=== PATIENT | male | born 1955 | race Caucasian/White ===

== ENCOUNTER 2019-10-22 23:50 | Inpatient (IN) ==
[2019-10-23] MEDS ORDERED: NS 1,000 ML IV ONE ×3 (00:46→07:00)
[2019-10-23 01:53] LABS: URINE SOURCE CLEAN CATCH
[2019-10-23 01:58] LABS: ALBUMIN 4.4 g/dL (3.5-5.0); ALKALINE PHOSPHATASE 107 U/L (32-122); BUN 18 mg/dL (8-22); CALCIUM 10.3 mg/dL (8.8-10.2); CREATININE 0.9 mg/dL (0.7-1.2); ESTIMATED GFR > 60; GLUCOSE 278 mg/dL (70-104); GOT 17 U/L (10-34); GPT 32 U/L (10-44); TCO2 21 mmol/L (25-35); TOTAL PROTEIN 6.7 g/dL (6.3-8.3)
[2019-10-23 02:02] LABS: LIPASE 57 U/L (13-60)
[2019-10-23 02:11] LABS: BILIRUBIN URINE NEGATIVE (NEGATIVE); BLOOD URINE NEGATIVE (NEGATIVE); COLOR YELLOW; GLUCOSE URINE NEGATIVE (NEGATIVE); KETONE URINE 40 mg/dL (NEGATIVE); LEUKOCYTES URINE NEGATIVE (NEGATIVE); NITRITE URINE NEGATIVE (NEGATIVE); PROTEIN URINE 50 mg/dL (NEGATIVE); TURBIDITY URINE CLEAR (CLEAR); UROBILINOGEN URINE 2 mg/dL (NORMAL)
[2019-10-23 02:13] LABS: UR EPITHELIAL CELLS <10 /HPF (<10); URINE BACTERIA NEGATIVE /HPF; URINE RBC <10 /HPF (<10); URINE WBC <10 /HPF (<10)
[2019-10-23 02:16] LABS: BASO# 0.04 X1000 (0.0-0.2); BASO% 0.3 % (0.0-0.8); EOS# 0.21 X1000 (0.0-0.7); EOS% 1.3 % (0.0-10.0); HEMATOCRIT 49.3 % (42.0-52.0); HEMOGLOBIN 17.7 g/dL (14.0-18.0); IMM GRAN# 0.09 X1000 (0.0-0.04); IMM GRAN% 0.6 % (0.0-0.5); LYMPH# 1.56 X1000 (1.2-3.4); LYMPH% 9.9 % (20.5-51.1); MCH 29.2 PG (27-31); MCHC 35.9 g/dL (33-37); MCV 81.4 FL (81-99); MONO# 1.02 X1000 (0.11-0.59); MONO% 6.5 % (1.7-9.3); MPV 11.8 FL (7.4-10.4); NEUT# 12.81 X1000 (1.4-6.5); NEUT% 81.4 % (42.2-75.2); PLT 215 X1000 (130-400); RBC 6.06 XMIL (4.7-6.1); RDW 13.1 % (11.5-14.5); WBC 15.73 X1000 (4.8-10.8)
[2019-10-23 02:49] LABS: UR AMPHETAMINES QUAL NONE DETECTED (NONE DETECT); UR BARBITUATES QUAL NONE DETECTED (NONE DETECT); UR BENZODIAZEPIN QUAL NONE DETECTED (NONE DETECT); UR COCAINE QUAL NONE DETECTED (NONE DETECT); UR METHADONE QUAL NONE DETECTED (NONE DETECT); UR METHAMPHETAMINE QUAL NONE DETECTED (NONE DETECT); UR OPIATES QUAL NONE DETECTED (NONE DETECT); UR OXYCODONE QUAL NONE DETECTED (NONE DETECT); UR PCP QUAL NONE DETECTED (NONE DETECT); UR PROPOXYPHENE QUAL NONE DETECTED (NONE DETECT)
[2019-10-23 02:50] LABS: UR CANNABINOIDS QUAL NONE DETECTED (NONE DETECT); UR TCA QUAL NONE DETECTED (NONE DETECT)
[2019-10-23 02:51] LABS: CHLORIDE 102 mmol/L (98-107); POTASSIUM 3.2 mmol/L (3.5-5.1); SODIUM 140 mmol/L (136-145)
[2019-10-23] MEDS ORDERED: MORPHINE IV ONE (05:03)
[2019-10-23] MEDS ORDERED: ZOFRAN IV ONE (05:03)
[2019-10-23] MEDS ORDERED: HALDOL IM ONE (05:45)
--- NOTE | 2019-10-23 06:01 | EKG Report ---
Test Performed on : 10/23/2019 05:49:01 AM Test Reason : behavioral change, psych screening. Blood Pressure : / mmHG Vent. Rate : 062 BPM Atrial Rate : 062 BPM P-R Int : 152 ms QRS Dur : 100 ms QT Int : 436 ms P-R-T Axes : 052 054 060 degrees QTc Int : 442 ms Normal sinus rhythm. with sinus arrhythmia. Normal ECG When compared with ECG of 24-APR-2011 20:40, T wave inversion less evident in Anterolateral leads QT has lengthened Unconfirmed Result
--- NOTE | 2019-10-23 06:53 | Diag Imaging Result Doc PS360 ---
EXAM: CT HEAD W/O CONTRAST - 10/23/2019 HISTORY: acute behavioral change TECHNIQUE: CT head without contrast COMPARISON: 04/24/2011 FINDINGS: There is no evidence of intracranial hemorrhage, mass effect, midline shift, or hydrocephalus. There is no evidence of infarct, although acute infarcts may not be immediately visible. There is no evidence of skull fracture. Visualized portions of paranasal sinuses and mastoid air cells appear clear. IMPRESSION: No visible acute intracranial abnormality. The on-call radiologist provided preliminary results at 3:33 AM on 10/23/2019. This exam was performed using automated exposure control, adjustment of mA or kV according to patient size, and/or use of iterative reconstruction technique. Electronically signed by Kishore Ann 10/23/2019 6:51 AM
--- NOTE | 2019-10-23 06:57 | PROVIDER DOCUMENTATION ---
HPI-General Adult - General Chief Complaint: Psych-Low Risk Stated Complaint: PSYCH EVAL Time Seen by Provider: 10/23/19 00:17 Allergies/Adverse Reactions: Patient Allergies Allergy/AdvReac Type Severity Reaction Status Date / Time coconut oil Allergy RASH Verified 03/27/15 10:14 Penicillins Allergy RASH Verified 03/27/15 10:14 Home Medications: Home Medication List Medication Instructions Recorded Confirmed Last Taken Type Amlodipine Besylate [Norvasc] 5 mg PO DAILY 07/13/14 03/27/15 03/27/15 07:00 History Aspirin [Aspirin EC] 81 mg PO DAILY 07/13/14 03/27/15 03/27/15 07:00 History Atorvastatin Calcium [Lipitor] 20 mg PO HS 07/13/14 03/27/15 03/27/15 07:00 History Isosorbide Mononitrate E.r. [Imdur] 30 mg PO HS 07/13/14 03/27/15 03/27/15 07:00 History Clonidine [Catapres] 0.1 mg PO DAILY 03/27/15 03/27/15 03/27/15 07:00 History - History of Present Illness -Gen Adult Nature of Presenting Problems: Pt presents for med clearance for psychiatry due to feeling paranoid that people are entering his home and watching him through his TV. His daughter states this has been worsening over several weeks and is now severe. He has been vomiting the past 2 days after eating and having severe bouts of lower abdominal pain. No previous episodes of such. Past History - Adult - PAST MEDICAL HISTORY-ADULT Major Childhood Illnesses: reports: denies history Cardiovascular: reports: HTN, hyperlipidemia, [place] Respiratory: reports: denies history Gastrointestinal: reports: denies history Obstetrical/Gynecological: reports: denies history Genitourinary: reports: denies history Musculoskeletal: reports: denies history Neurological: reports: denies history Endocrine/Immune: reports: denies history Other Conditions: reports: denies history - PRIOR SURGERIES/PROCEDURES Surgical/Procedure History: reports: CABG - PRIOR HOSPITALIZATIONS Prior Hospitalizations: reports: none - IMMUNIZATION STATUS Childhood Immunizations: UTD - FAMILY HISTORY Family History: reviewed, not pertinent Progress - PLAN OF CARE/RESULTS Progress/Plan/Lab Results: Vital Signs - 8 hr 10/22/19 23:52 10/23/19 01:45 10/23/19 03:43 Temperature 97.3 F L 97.8 F Pulse Rate 100 H 109 H 77 Respiratory Rate 18 28 H 18 Blood Pressure 171/108 142/96 115/78 O2 Sat by Pulse Oximetry 95 98 98 10/23/19 05:15 10/23/19 06:00 Temperature Pulse Rate 86 70 Respiratory Rate 18 20 Blood Pressure 118/78 126/69 O2 Sat by Pulse Oximetry 95 92 L Laboratory Results - last 24 hr 10/23/19 10/23/19 10/23/19 00:18 00:18 00:18 WBC 15.73 H RBC 6.06 Hgb 17.7 Hct 49.3 MCV 81.4 MCH 29.2 MCHC 35.9 RDW Std Deviation 13.1 Plt Count 215 MPV 11.8 H Immature Gran % (Auto) 0.6 H Neut % (Auto) 81.4 H Lymph % (Auto) 9.9 L Burnett % (Auto) 6.5 Eos % (Auto) 1.3 Baso % (Auto) 0.3 Immature Gran # (Auto) 0.09 H Neut # (Auto) 12.81 H Lymph # (Auto) 1.56 Burnett # (Auto) 1.02 H Eos # (Auto) 0.21 Baso # (Auto) 0.04 Sodium 140 Potassium 3.2 L Chloride 102 Carbon Dioxide 21 L Anion Gap Not Reportable BUN 18 Creatinine 0.9 Estimated GFR/1.73 m2 > 60 BUN/Creatinine Ratio 20 Glucose 278 H Calculated Osmolality Not Reportable Calcium 10.3 H Total Bilirubin 1.20 H AST 17 ALT 32 Alkaline Phosphatase 107 Troponin T High Sens Total Protein 6.7 Albumin 4.4 Globulin 2.0 Albumin/Globulin Ratio 2.0 Lipase 57 Urine Source Urine Color Urine Turbidity Urine pH Ur Specific [place] Urine Protein Ur Glucose (Stick) Ur Ketones (Stick) Urine Blood Urine Nitrite Urine Bilirubin Urobilinogen Dipstick Urine Leukocytes Urine WBC (Auto) Urine RBC (Auto) U Epithel Cells (Auto) Urine Bacteria (Auto) Urine Opiates Screen Ur Oxycodone Screen Urine Methadone Screen U Propoxyphene Qual Ur Barbituates Screen Ur Tricyclics Screen Ur Phencyclidine Scrn Ur Amphetamines Screen U Methamphetamines Scrn U Benzodiazepines Scrn Urine Cocaine Screen U Cannabinoids Screen Plasma/Serum Ethyl Alc 10/23/19 10/23/19 10/23/19 00:18 01:18 01:18 WBC RBC Hgb Hct MCV MCH MCHC RDW Std Deviation Plt Count MPV Immature Gran % (Auto) Neut % (Auto) Lymph % (Auto) Burnett % (Auto) Eos % (Auto) Baso % (Auto) Immature Gran # (Auto) Neut # (Auto) Lymph # (Auto) Burnett # (Auto) Eos # (Auto) Baso # (Auto) Sodium Potassium Chloride Carbon Dioxide Anion Gap BUN Creatinine Estimated GFR/1.73 m2 BUN/Creatinine Ratio Glucose Calculated Osmolality Calcium Total Bilirubin AST ALT Alkaline Phosphatase Troponin T High Sens 15 Total Protein Albumin Globulin Albumin/Globulin Ratio Lipase Urine Source CLEAN CATCH Urine Color YELLOW Urine Turbidity CLEAR Urine pH 6.0 Ur Specific [place] 1.030 Urine Protein 50 A Ur Glucose (Stick) NEGATIVE Ur Ketones (Stick) 40 A Urine Blood NEGATIVE Urine Nitrite NEGATIVE Urine Bilirubin NEGATIVE Urobilinogen Dipstick 2 A Urine Leukocytes NEGATIVE Urine WBC (Auto) <10 Urine RBC (Auto) <10 U Epithel Cells (Auto) <10 Urine Bacteria (Auto) NEGATIVE Urine Opiates Screen NONE DETECTED Ur Oxycodone Screen NONE DETECTED Urine Methadone Screen NONE DETECTED U Propoxyphene Qual NONE DETECTED Ur Barbituates Screen NONE DETECTED Ur Tricyclics Screen NONE DETECTED Ur Phencyclidine Scrn NONE DETECTED Ur Amphetamines Screen NONE DETECTED U Methamphetamines Scrn NONE DETECTED U Benzodiazepines Scrn NONE DETECTED Urine Cocaine Screen NONE DETECTED U Cannabinoids Screen NONE DETECTED Plasma/Serum Ethyl Alc Orders Category Date Time Status Resuscitation Status Routine Care 10/23/19 05:48 Ordered CHEST-2 VIEWS [RAD] Stat Exams 10/23/19 00:[address] ABD/PELVIS W/IV CONT ONLY [CT] Stat Exams 10/23/19 00:[address] HEAD W/O CONTRAST [CT] Stat Exams 10/23/19 00:43 Taken ALCOHOL BLOOD Stat Lab 10/23/19 00:18 Completed CBC WITH ELECTRONIC DIFF [HEME] Stat Lab 10/23/19 00:18 Completed COMPREHENSIVE METABOLIC PANEL [CHEM] Stat Lab 10/23/19 00:18 Completed LIPASE [CHEM] Stat Lab 10/23/19 00:18 Completed TROPONIN T HIGH SENSITIVITY Stat Lab 10/23/19 00:18 Completed UA NIMS W/REFLEX CULT [URINALYSIS] Stat Lab 10/23/19 01:18 Completed URINE DRUG SCREEN PL Stat Lab 10/23/19 01:18 Completed 0.9% Sodium Chloride Inj [Ns] 1,000 ml Med 10/23/19 00:46 Discontinued IV 999 mls/hr 0.9% Sodium Chloride Inj [Ns] 1,000 ml Med 10/23/19 05:03 Discontinued IV 999 mls/hr Haloperidol Lactate [Haldol] Med 10/23/19 05:45 Discontinued 5 mg IM ONCE ONE Morphine Med 10/23/19 05:03 Discontinued 4 mg IV NOW ONE Ondansetron [Zofran] Med 10/23/19 05:03 Discontinued 4 mg IV NOW ONE EKG [EKG] Stat Ther 10/23/19 05:43 Draft Transfer/Admit Order [TRANSFER] Routine Transfer 10/23/19 05:48 Ordered Clinically stable while here. Considerations include but not limited to: malignancy, mesenteric ischemia, diverticulitis, colitis. Labs are suggestive of dehydration. CT A/P showed marked aortic stenosis distal to the GENEVIEVE and complete occlusion of the R iliac. He had reconstitution distally. RLE NEREYDA was 0.77. The cause of his post prandial NV is not clear, but he vomited multiple times here with associated pain and was unable to tolerate food or liquid. Case discussed with Dr Hayes who feels mesenteric ischemia is unlikely. Result Diagrams: 10/23/19 00:18 10/23/19 00:18 Departure - Departure Referrals and Follow-Ups: Myke Sanchez CRNP [Primary Care Provider] -
[2019-10-23] MEDS ORDERED: ZOFRAN PO PRN (07:00)
[2019-10-23] MEDS ORDERED: ZOFRAN ODT ONE (07:01)
--- NOTE | 2019-10-23 07:11 | Diag Imaging Result Doc PS360 ---
EXAM: CHEST-2 VIEWS - 10/23/2019 HISTORY: cough TECHNIQUE: Chest two views COMPARISON: 04/24/2011 chest two views, 02/18/2011 portable chest FINDINGS: Heart size is normal. There are sternal wires from previous surgery. There is some tortuosity of the thoracic aorta. There is apparent right upper lobe calcified granuloma from old granulomatous disease. This is obscured by EKG leads on the 04/24/2011 exam appears to be faintly visible on 02/18/2011 exam. The lungs otherwise appear essentially clear. There is no consolidation, pleural effusion, or pneumothorax identified. There is thoracic spondylosis noted. IMPRESSION: Apparent right upper lobe granuloma from old granulomatous disease. Follow-up chest radiographs in 2-3 months are recommended to confirm stability. No evidence of acute disease otherwise. Electronically signed by Kishore Ann 10/23/2019 7:09 AM
--- NOTE | 2019-10-23 07:50 | Diag Imaging Result Doc PS360 ---
EXAM: CT ABD/PELVIS W/IV CONT ONLY - 10/23/2019 HISTORY: BLQ pain/vomiting TECHNIQUE: CT abdomen/pelvis with intravenous contrast COMPARISON: None. FINDINGS: The visualized lungs bases appear clear except for mild dependent atelectasis on the right. There are atheromatous changes in the infrarenal abdominal aorta. There is approximately two thirds diameter stenosis at the distal aorta. There is mild ectasia of the distal aorta at 2.2 cm. The right common iliac artery is occluded at its origin. There is reconstitution of the right external and internal iliac arteries at the common iliac bifurcation. There is no indication of mesenteric arterial occlusion. There are no substantial abnormalities of the liver, spleen, adrenal glands, or pancreas identified. There are no calcified gallstones or pericholecystic inflammation seen. The bilateral kidneys enhance homogeneously except for a small right renal cyst. There is no hydronephrosis. There are no substantially enlarged lymph nodes identified. There are lumbar spine degenerative changes noted. There is no evidence of bowel obstruction. The appendix is unremarkable. There is no substantial bowel wall thickening identified. The rectum is moderately distended with retained fecal debris and air. There is no free air, free fluid, or abscess identified. IMPRESSION: Atheromatous changes in the infrarenal aorta. Approximately two thirds diameter stenosis at the distal aorta. 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 Reconstitution of the right external iliac and internal iliac arteries at the common iliac bifurcation. No bowel obstruction. No abscess. No free air. An telephone engineer radiologist provided preliminary results at 3:47 AM on 10/23/2019. There is an addendum to the report at 5:26 AM which indicates that an telephone engineer radiologist discussed results by telephone with Dr. Oconnor. This exam was performed using automated exposure control, adjustment of mA or kV according to patient size, and/or use of iterative reconstruction technique. Electronically signed by Kishore Ann 10/23/2019 7:48 AM
[2019-10-23] MEDS ORDERED: GEODON IM PRN (09:11)
[2019-10-23] MEDS ORDERED: STERILE WATER INJ. INJ PRN (09:11)
[2019-10-23] MEDS ORDERED: KLOR-CON PO ONE (09:46)
[2019-10-23] MEDS ORDERED: GEODON ONE ×2 (10:48)
--- NOTE | 2019-10-23 10:55 | HISTORY AND PHYSICAL ---
PRIMARY CARE PHYSICIAN: ESTRELLITA Mars. CHIEF COMPLAINT: Abdominal pain with nausea and vomiting over the past 2 days that progressively worsened. Also on arrival, his daughter states that the patient has had increased paranoia, thinks that people are watching him through his TV, having auditory hallucinations, thinks that there are cameras watching him in his home. HISTORY OF PRESENT ILLNESS: This is a 64-year-old male who presents to [facility] ER with complaints of abdominal pain with nausea and vomiting over the past 2 days that have progressively worsened. Daughter also stated when they arrived that he had been having increased auditory hallucinations, paranoia and delusions. States people are after him and that there are cameras watching him. He does not endorse that at this time, and the daughter is not present at the time of assessment. His ER workup showed a white blood cell count of 15.73, potassium of 3.2. Abdomen and pelvic CT showed an impression of atheromatous changes in the infrarenal aorta with approximately 2/3 diameter stenosis in the distal aorta, occlusion of the right common iliac artery, reconstitution of the right external iliac and internal iliac arteries at the common iliac bifurcation. No bowel obstruction, no abscess, no free air. These findings were discussed with on-call general surgeon, Dr. Hayes, who did not feel at this time that there was any surgical need. We did a CT of his head that showed no visible acute intracranial abnormality. Chest x-ray showed an apparent right upper lobe granuloma from old granulomatous disease. No evidence of acute disease otherwise. So, he will be admitted to the medical unit for further evaluation and treatment. Once we have addressed some of his medical issues, it may be necessary to consult Brissa Monatnez after medically cleared. PAST MEDICAL HISTORY: Hypertension, hyperlipidemia, [place], and chronic back pain. PAST SURGICAL HISTORY: A bleeding ulcer and a CABG. FAMILY HISTORY: Reviewed and noncontributory. SOCIAL HISTORY: Currently lives with family. Denies any tobacco, alcohol or illicit drug use. ALLERGIES: To coconut oil and penicillin. HOME MEDICATIONS: Will need to obtain a current list. Restart, reconcile and review once obtained. Place an order for nursing to update and confirm home medications. LABORATORY DATA: Showed a white blood cell count of 15.73, hemoglobin 17.7, hematocrit 49.3, platelets 215. Sodium 140, potassium 3.2, chloride 102, CO2 21, BUN of 18, creatinine 0.9, glucose 278. Lipase of 57. Cardiac enzyme was negative. Urinalysis was negative. Urine drug screen was negative. Serum alcohol level showed none detected. X-RAY DATA: Chest x-ray showed an apparent right upper lobe granuloma from old granulomatous disease with follow-up radiographs in 2 to 3 months recommended, but no evidence of acute disease otherwise. Head CT showed no visible acute intracranial abnormality. CT of the abdomen and pelvis showed an impression of atheromatous changes in the infrarenal aorta, approximately 2/3 diameter stenosis at the distal aorta. 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 No bowel obstruction. No abscess. No free air. REVIEW OF SYSTEMS: He denied any fever, chills, blurred vision, dizziness, chest pain, coughing, shortness of breath. He was positive for some generalized abdominal pain, nausea, vomiting. Denied any constipation, diarrhea, burning or hurting with urination. He also did not endorse any delusions or auditory hallucinations at this time. PHYSICAL EXAMINATION: VITAL SIGNS: On arrival, he had a temperature of 97.3 degrees, a pulse of 100, respirations 18, blood pressure was 171/108, satting 95% on room air. GENERAL: This is a 64-year-old male, who is lying in the bed. Answers questions appropriately. HENT: Normocephalic, atraumatic. Normal ENT inspection. Oropharynx and nares are clear. EYES: Pupils are equal, round, reactive to light and accommodation. Extraocular movements are intact. NECK: Normal inspection. Normal range of motion. LUNGS: Clear to auscultation bilaterally with equal lung expansion, chest wall movement. HEART: Regular rate and rhythm. No murmurs, rubs, or gallops. ABDOMEN: Soft, nontender, nondistended. Bowel sounds are present x4 quadrants. MUSCULOSKELETAL: He has 5/5 strength x4 extremities. NEUROLOGICAL: The cranial nerves 2-12 appear grossly intact. ASSESSMENT: 1. Generalized abdominal pain with vomiting. 2. Leukocytosis. 3. Hypokalemia. 4. Hypertension. 5. Paranoia on presentation per family with auditory hallucinations and delusions, not endorsed by patient currently. PLAN: He will be admitted to the medical unit, placed on a healthy heart diet. Normal saline at 125 mL an hour. Will give Geodon 10 mg IM q. 4 hours p.r.n. Update and confirm his home medications. We will give him potassium 40 mEq p.o. x1. Recheck CBC, BMP in the a.m. We will continue to watch his psychiatric demeanor. He may need a psychiatric consult once he is medically stable. The findings of the CT were discussed with on-call surgeon, Dr. Hayes, who did not feel any surgical intervention was needed at this time, nor was this the issue of why he presented to the emergency room. Dictated by ESTRELLITA Gaston for Jeremiah Tate MD cc: ESTRELLITA Gaston MD Kevin D. Campbell, CRNP
[2019-10-23] MEDS ORDERED: KLOR-CON ONE ×2 (10:58)
--- NOTE | 2019-10-23 20:17 | HISTORY AND PHYSICAL ---
ADDENDUM: Patient was seen and examined by myself. Full note dictated and discussed with nurse practitioner. Patient was seen in the ER. He is having some worsening of his chronic psychiatric issues, but he is also having some abdominal pain. We are going to admit to the hospital and follow him for any worsening. He does have an elevated white count at 15, blood glucose of 278, and a potassium low at 3.2. We are going to adjust these and follow. Please see full note. cc: Jeremiah Tate MD
[2019-10-24 06:27] LABS: AGAP 10; BUN 9 mg/dL (8-22); CALCIUM 9.3 mg/dL (8.8-10.2); CHLORIDE 105 mmol/L (98-107); COSMO 276; CREATININE 0.6 mg/dL (0.7-1.2); ESTIMATED GFR > 60; GLUCOSE 132 mg/dL (70-104); POTASSIUM 3.4 mmol/L (3.5-5.1); SODIUM 138 mmol/L (136-145); TCO2 23 mmol/L (25-35)
[2019-10-24 06:37] LABS: BASO# 0.01 X1000 (0.0-0.2); BASO% 0.1 % (0.0-0.8); EOS# 0.27 X1000 (0.0-0.7); EOS% 2.5 % (0.0-10.0); HEMATOCRIT 44.7 % (42.0-52.0); HEMOGLOBIN 14.9 g/dL (14.0-18.0); IMM GRAN# 0.06 X1000 (0.0-0.04); IMM GRAN% 0.5 % (0.0-0.5); LYMPH# 1.31 X1000 (1.2-3.4); MCH 27.3 PG (27-31); MCHC 33.3 g/dL (33-37); MONO# 0.98 X1000 (0.11-0.59); MONO% 8.9 % (1.7-9.3); NEUT# 8.32 X1000 (1.4-6.5); PLT 175 X1000 (130-400); RBC 5.45 XMIL (4.7-6.1); WBC 10.95 X1000 (4.8-10.8)
[2019-10-24] MEDS ORDERED: KLOR-CON PO ONE (09:18)
[2019-10-24] MEDS: SEPTRA DS PO SCH ×2 (10:12→21:28)
[2019-10-25 08:02] VITALS: BP 132/87
[2019-10-25] MEDS: SEPTRA DS PO SCH (09:45)
--- NOTE | 2019-10-25 12:35 | PROGRESS NOTE ---
DATE: 10/25/2019 SUBJECTIVE: The patient currently denies any abdominal pain. Currently denies any nausea, vomiting. States he ate a full breakfast without any issues. He is denying any auditory hallucinations or any issues. OBJECTIVE: Vital Signs: Temperature 98, pulse 89, respiratory rate 18, blood pressure 131/87. General: Patient is pleasant. He is currently in no respiratory distress. HEENT: Normocephalic. Neck: Supple. Cardiovascular: Regular rate. Chest: Clear. Abdomen: Soft. Extremities: Moves all extremities. ASSESSMENT: 1. Generalized abdominal pain, resolved. 2. Vomiting, resolved. 3. Leukocytosis, resolved. 4. Hypokalemia, improved. 5. Paranoia. The patient denies any auditory hallucinations or delusions. He was evaluated by Brissa Montanez and needs outpatient treatment. 6. Hypertension. PLAN: The patient will be discharged home. He will follow up outpatient with treatment facility of choice. No other changes were made. cc: Jeremiah Tate MD
--- NOTE | 2019-10-26 04:20 | DISCHARGE SUMMARY ---
ADMISSION DATE: 10/23/2019 DISCHARGE DATE: 10/25/2019 DISCHARGE DIAGNOSES: 1. Generalized abdominal pain, appears resolved. 2. Vomiting, resolved. 3. Leukocytosis, resolved. 4. Hypokalemia, stable. 5. Hypertension. 6. Paranoia. CONSULTATIONS: None. PROCEDURES: None. BRIEF HOSPITAL COURSE: The patient is a 64-year-old male who was admitted to the hospital secondary to his abdominal pain, leukocytosis as well as an abnormal CT scan. He has had no further events during the hospital stay. CT is likely chronic, not acute. His symptoms have resolved, however he is still having some paranoid issues and certainly needs to consider transfer to [facility]. DISPOSITION: Hopefully, the patient can transition to [facility] prior to discharge. No changes need to be made on his chronic home medications otherwise. cc: Jeremiah Tate MD
== END 2019-10-25 12:09 | disposition home or self-care (01) | DRG 392 ==
LOC: P.ED 23:50 → EDIPHOLD 10-23 07:01 → SUATTDRO 10-23 07:01
PROVIDERS: ATTEND Family Medicine